=== PATIENT | female | born 2005 | race Caucasian/White ===

== ENCOUNTER 2024-02-07 14:17 | Emergency (ER) | payer OTHER, SELFPAY ==
[2024-02-07 14:28] VITALS: BP 133/98
--- NOTE | 2024-02-07 14:31 | ED.MUSCINJ ---
HPI-Injury
<Alton Richter PA-C - Last Filed: 02/07/24 14:32>
General
Chief Complaint: Musculo-Skeletal Complaint
Time Seen by Provider: 02/07/24 15:03
<Michael Rivers MD - Last Filed: 02/08/24 00:40>
General
Source: patient and family (Parents)
Exam Limitations: none
Nursing documentation reviewed up to this point in time: agreed with
History of Present Illness-Injury
Initial Injury comments:
18-year-old female with no reported chronic medical issues presents to the ER for evaluation of right leg injury. Patient says that last night she did a back flip on the trampoline and she twisted her right lower leg. She says she heard a snap
near the ankle and has had pain and swelling in the ankle as well as pain in the lateral knee. Trouble bearing weight. Came to the ER for evaluation. Denies any other injuries.
ED Provider Triage
<Alton Richter PA-C - Last Filed: 02/07/24 14:32>
-
Patient seen by provider in Triage?: Seen in Triage
18-year-old female presents for evaluation. She was doing a flip on a trampoline last evening and fell awkwardly. She complains of pain from her knee through to her ankle on the right side. She was at another hospital this morning but they
overlook some things per the family. She is unable to bear weight secondary to the pain.
She has good sensation to the leg with good color. Will order x-rays of the right knee tib-fib and ankle.
Review of Systems
<Michael Rivers MD - Last Filed: 02/08/24 00:40>
Review of Systems
All Other Systems: ROS reviewed and negative except as documented in HPI and ROS
Musculoskeletal: Reports joint pain (Knee and ankle pain)
Neurological: Denies headache
Phy Exam
<Michael Rivers MD - Last Filed: 02/08/24 00:40>
Physical Exam
Physical Exam:
General: Well appearing and non-toxic
HEENT: protecting airway
Neck: appears supple
CV: No evidence of cyanosis
Resp: No accessory muscle use
Abd: Non-distended
Extremities: No deformities; good pulses specifically strong right DP pulse and PT pulse; on exam of her right lower extremity:
RIGHT KNEE: No joint effusion, no joint line tenderness, no pain with manipulation of the patella, no laxity on varus or valgus stress, negative anterior and posterior drawer sign, full active range of motion of the right knee; she does have some
tenderness along the proximal fibula
RIGHT ANKLE: Patient has swelling and tenderness along the lateral malleolus and in the region of the ATFL; no tenderness of the medial malleolus, no midfoot tenderness, no tenderness along the fifth metatarsal, no calcaneal tenderness, no
tenderness or defect in the Achilles tendon
Neuro: Alert
Psych: Normal affect
Skin: Intact
Scores
<Michael Rivers MD - Last Filed: 02/08/24 00:40>
Heart Failure Risk
Heart Failure Risk Score: Not Applicable
Heart Score for Chest Pain Patients
STEMI patient?: Not applicable
Withdrawal Assessment of Alcohol
Withdrawal Assessment Completed?: Not applicable
Injury Course
<Alton Richter PA-C - Last Filed: 02/07/24 14:32>
Orders/Labs/Results
Orders:
Orders
02/07/24 14:30
CR Ankle - Right Min 3 Views * Urgent
Comment:
Reason For Exam: fall
CR Knee- Right 4 Or More View* Urgent
Comment:
Reason For Exam: pain after fall
CR Leg Tibia/fibula Right 2 Vw Urgent
Comment:
Reason For Exam: fall, pain
02/07/24 15:39
Ortho Boot Right- Treatment ONCE
Short or tall?: Short
<Michael Rivers MD - Last Filed: 02/08/24 00:40>
Orders/Labs/Results
Orders:
Orders
02/07/24 14:30
CR Ankle - Right Min 3 Views * Urgent
Comment:
Reason For Exam: fall
CR Knee- Right 4 Or More View* Urgent
Comment:
Reason For Exam: pain after fall
CR Leg Tibia/fibula Right 2 Vw Urgent
Comment:
Reason For Exam: fall, pain
02/07/24 15:39
Ortho Boot Right- Treatment ONCE
Short or tall?: Short
<Michael Rivers MD - Last Filed: 02/08/24 00:40>
MDM/Problems Addressed
Differential Diagnosis Includes:
Ankle sprain, Maisonneuve fracture, ankle fracture, internal derangement of the knee
MDM/Problems Addressed:
18-year-old female presents to the emergency room for evaluation of a right lower leg injury as described above. She has pain in the ankle and swelling and tenderness along the lateral malleolus; she also reports knee pain is only tender along the
proximal fibula; knee exam itself as above is relatively reassuring. She was sent for x-rays in triage reviewed independently by me show no acute fractures or dislocations. My suspicion is that she has a significant ankle sprain with likely a
component of high ankle sprain. Placed in Ortho boot, patient already has crutches. Will refer to orthopedic for outpatient follow-up. We spoke about [facility]. All questions answered.
<Michael Rivers MD - Last Filed: 02/08/24 00:40>
*Radiology
Radiology exam reviewed: preliminary read by ED provider and radiology read reviewed
*Pulse Oximetry
Patient hypoxic: no
*Critical Care Note
Total Time (30-74mins, 75-104mins- exclusive of procedures): Not Applicable
Data Reviewed
Source: patient and family
ED Attending Note
<Alton Richter PA-C - Last Filed: 02/07/24 14:32>
-
Portions of this chart may have been created with voice recognition software.� Occasional wrong word or��sound alike� substitutions may have occurred due to the inherent limitations of voice recognition software.
Discharge Plan
Departure
Patient Disposition: Home (Routine Discharge)
Date of Disposition: 02/07/24
Time of Disposition: 15:35
Patient with high blood pressure during this ER visit?: No
Discharge Problem:
High ankle sprain
Instructions: Ankle Sprain ED
Referrals:
Ernst Rivera MD [Family Provider] -
Miguel Ángel Shelton MD [Active] - Call in 1-3 days for appt (Orthopedist)
Stand Alone Forms: Back to School
Activity Restrictions/Additional Instructions:
Take Tylenol 1000 mg every 6 hours, Motrin 400 mg every 6 hours for pain. You should apply ice (no longer than 15 minutes at a time), compression and elevate your leg as we discussed. You should stay off of your leg and follow-up with the
orthopedic doctor next week.
Thank you for visiting the Emergency Department at [facility].
1. Please schedule a follow up appointment as directed. Call first thing tomorrow morning to make an appointment.
2. If indicated, please take your medications as instructed and indicated on discharge paperwork.
3. If any of your symptoms do not improve, or persist, or become more severe within 6-12 hours, please return to the emergency department for further care.
4. Please return to the emergency department if you develop a headache, neck pain/stiffness, fever greater than 100.4F, chest pain, shortness of breath, persistent nausea, vomiting, slurred speech, difficulty walking, numbness/tingling, weakness,
signs of infection or any other symptoms that are worrisome to you.
Please call [phone] if you have any questions.
Interventions
Interventions:
*Risk Screen - Suicide Last Done: 02/07/24 14:28
*General Assessment Last Done: 02/07/24 14:28
*Neglect/Abuse Screening Last Done: 02/07/24 14:28
ED- Fall Risk Assessment Last Done: 02/07/24 15:56
*ED COVID-19 Vaccine History Last Done: 02/07/24 14:28
*Nursing Disposition Last Done: 02/07/24 15:56
ED-Musculoskeletal Assessment Last Done: 02/07/24 15:30
Discharge Date and Time
Discharge Date/Time: 02/07/24 15:56
Print Language: MAORI
[2024-02-07 15:54] VITALS: BP 148/106
== END 2024-02-07 15:56 | disposition home or self-care (01) ==
LOC: EMR 14:17
PROVIDERS: EMERGENCY PHYSICIAN Emergency Medicine; FAMILY PHYSICIAN Family Medicine
DX: S93.401A Sprain of unspecified ligament of right ankle, initial encounter (principal); Y93.44 Activity, trampolining
CPT/HCPCS: 99283; 73564; 73590; 73610